=== PATIENT | female | born 1940 | race Caucasian/White ===

== ENCOUNTER 2018-06-09 06:45 | Inpatient (IN) | payer MEDICARE ==
[2018-06-07 10:20] LABS: BASOPHILS # (AUTO) 0.03 x10^3/uL (0-0.1); BASOPHILS % (AUTO) 1 % (0-1); EOSINOPHILS # (AUTO) 0.12 x10^3/uL (0-0.4); EOSINOPHILS % (AUTO) 2 % (1-7); LYMPHOCYTES # (AUTO) 1.15 x10^3/uL (1-3.4); LYMPHOCYTES % (AUTO) 16 % (22-44); MD NO; MEAN CORPUSCULAR HEMOGLOBIN 30.6 pg (27.0-34.8); MEAN PLATELET VOLUME 8.4 fL (7.4-10.4); MONOCYTES # (AUTO) 0.56 x10^3/uL (0.2-0.8); MONOCYTES % (AUTO) 8 % (2-9); NEUTROPHILS # (AUTO) 5.54 x10^3/uL (1.8-6.8); NEUTROPHILS % (AUTO) 75 % (42-75); PLATELET COUNT 262 x10^3/uL (130-400); RED BLOOD COUNT 4.76 x10^6/uL (3.82-5.3); RED CELL DISTRIBUTION WIDTH 15.2 % (9.6-15.2)
[2018-06-07 10:28] LABS: ALBUMIN 3.4 g/dL (3.4-5.0); ANION GAP 6 mmol/L (5-15); CALCIUM 8.7 mg/dL (8.5-10.1); CHLORIDE 107 mmol/L (98-107)
[2018-06-07 10:32] LABS: ALANINE AMINOTRANSFERASE 29 U/L (12-78); ALKALINE PHOSPHATASE 53 U/L (45-117); BILIRUBIN,TOTAL 0.3 mg/dL (0.2-1.0); CREATININE 0.94 mg/dL (0.55-1.02); TOTAL PROTEIN 7.4 g/dL (6.4-8.2)
[~2018-06-09] VITALS: Ht 170.2 cm; Wt 85.7 kg
[~2018-06-09 06:45] MED LIST: ASPI-621 PO; CRAN1TAB6 PO; EQUATE NAS; ZOLP10TA5 PO
[2018-06-09] MEDS ORDERED: BUPIVACAINE/PF-EPI 0.5% 1:200K ONE ×2 (06:51→10:54)
[2018-06-09] MEDS ORDERED: LACTATED RINGERS 1,000 ML IV SCH ×2 (07:51→16:00)
[2018-06-09] MEDS ORDERED: GABAPENTIN 300 MG CAPSULE PO ONE (08:00)
[2018-06-09] MEDS ORDERED: ACETAMINOPHEN 500 MG TABLET PO ONE (08:00)
[2018-06-09 08:03] VITALS: BP 109/69
[2018-06-09] MEDS ORDERED: INDOCYANINE GREEN 25 MG VIAL ONE (08:34)
[2018-06-09] MEDS ORDERED: FLUORESCEIN SODIUM 500 MG/5 ML ONE (08:35)
[2018-06-09] MEDS ORDERED: PROPOFOL 10 MG/ML, 20ML ONE (08:51)
[2018-06-09] MEDS ORDERED: ROCURONIUM 10MG/ML,5ML ONE (08:52)
[2018-06-09] MEDS ORDERED: NEOSTIGMINE 1 MG/ML, 10ML ONE (08:52)
[2018-06-09] MEDS ORDERED: GLYCOPYRROLATE 0.4 MG/2 ML, 2ML ONE (08:53)
[2018-06-09] MEDS ORDERED: DEXAMETHASONE 4 MG/ML, 1ML ONE ×2 (08:53)
[2018-06-09] MEDS ORDERED: CEFOTETAN PMX 2GM/50ML 50 ML ONE (08:54)
[2018-06-09] MEDS ORDERED: FENTANYL PF 250 MCG/5ML ONE (08:57)
[2018-06-09] MEDS ORDERED: PROMETHAZINE 25 MG SUPP PR PRN (10:00)
[2018-06-09] MEDS ORDERED: PROMETHAZINE 25 MG/ML, 1ML IV PRN (10:00)
[2018-06-09] MEDS ORDERED: ONDANSETRON ODT 8 MG PO PRN (10:00)
[2018-06-09] MEDS ORDERED: hydrALAzine 20 MG/ML, 1ML IV PRN (10:00)
[2018-06-09] MEDS ORDERED: ONDANSETRON 2MG/ML, 2ML IV PRN ×2 (10:00→16:00)
[2018-06-09] MEDS ORDERED: OXYcodone 5 MG/5 ML ORAL.SOL UDC PO PRN (10:00)
[2018-06-09] MEDS ORDERED: FENTANYL PF 100 MCG/2ML IV PRN (10:00)
[2018-06-09] MEDS ORDERED: MEPERIDINE/PF 25MG/0.5ML IVPush PRN (10:00)
[2018-06-09] MEDS ORDERED: LABETALOL 5MG/ML, 20ML IV PRN (10:00)
[2018-06-09] MEDS ORDERED: MORPHINE SULFATE 4 MG/ML, 1ML IVPush PRN ×2 (10:00→16:00)
[2018-06-09] MEDS ORDERED: HYDROmorphone 1 MG/ML, 1ML IV PRN (10:00)
[2018-06-09] MEDS ORDERED: PROMETHAZINE 12.5 MG SUPP PR PRN (10:00)
[2018-06-09] MEDS ORDERED: ONDANSETRON 2MG/ML, 2ML ONE (10:24)
[2018-06-09] MEDS ORDERED: THROMBIN 5,000 UNIT VIAL TP ONE (12:10)
[2018-06-09] MEDS ORDERED: KETOROLAC 30 MG/1 ML ONE (12:58)
[2018-06-09] MEDS ORDERED: OXYcodone 5 MG/5 ML ORAL.SOL UDC ONE (12:58)
[2018-06-09] MEDS ORDERED: KETOROLAC 30 MG/1 ML IVPush ONE (13:30)
[2018-06-09] MEDS ORDERED: ZOLPIDEM 10MG TABLET PO PRN (15:30)
[2018-06-09] MEDS ORDERED: DIPHENHYDRAMINE 25 MG CAPSULE PO PRN (15:30)
[2018-06-09] MEDS ORDERED: CALCIUM CARBONATE 500 MG TAB.CHEW PO PRN (16:00)
[2018-06-09] MEDS ORDERED: HALOPERIDOL 5 MG/ML IVPush PRN (16:00)
[2018-06-09] MEDS ORDERED: DEXAMETHASONE 4 MG/ML, 1ML IVPush PRN (16:00)
[2018-06-09] MEDS ORDERED: SCOPOLAMINE PATCH, 1.5MG PATCH.TD72 TD PRN (16:00)
[2018-06-09] MEDS ORDERED: DIPHENHYDRAMINE 50 MG/ML, 1ML IVPush PRN (16:00)
[2018-06-09] MEDS: ACETAMINOPHEN 500 MG TABLET PO SCH ×2 (16:24→21:58)
[2018-06-09] MEDS: KETOROLAC 30 MG/1 ML IVPush SCH ×2 (16:24→21:58)
[2018-06-09] MEDS: ENOXAPARIN 40 MG/0.4 ML SQ SCH (16:24)
[2018-06-09 19:45] VITALS: BP 110/70
[2018-06-09] MEDS: OXYMETAZOLINE NASAL SPRAY 0.05%, 15ML NAS SCH (21:00)
[2018-06-10 00:02] VITALS: BP 103/54
[2018-06-10] MEDS: OXYcodone IR 5MG TABLET PO PRN ×3 (02:47→13:52)
[2018-06-10 04:05] VITALS: BP 117/54
[2018-06-10] MEDS: KETOROLAC 30 MG/1 ML IVPush SCH ×4 (04:09→21:38)
[2018-06-10] MEDS: ACETAMINOPHEN 500 MG TABLET PO SCH ×4 (04:10→21:38)
[2018-06-10 05:45] LABS: ANION GAP 7 mmol/L (5-15); CALCIUM 8.8 mg/dL (8.5-10.1); CHLORIDE 107 mmol/L (98-107); CREATININE 0.86 mg/dL (0.55-1.02)
[2018-06-10 05:56] LABS: BASOPHILS % (AUTO) 0 % (0-1); EOSINOPHILS % (AUTO) 0 % (1-7); LYMPHOCYTES # (AUTO) 0.78 x10^3/uL (1-3.4); LYMPHOCYTES % (AUTO) 6 % (22-44); MD NO; MEAN CORPUSCULAR HEMOGLOBIN 30.6 pg (27.0-34.8); MEAN CORPUSCULAR HGB CONC 33.7 g/dL (32.4-35.8); MEAN PLATELET VOLUME 8.7 fL (7.4-10.4); MONOCYTES # (AUTO) 0.82 x10^3/uL (0.2-0.8); MONOCYTES % (AUTO) 7 % (2-9); NEUTROPHILS # (AUTO) 10.96 x10^3/uL (1.8-6.8); NEUTROPHILS % (AUTO) 87 % (42-75); PLATELET COUNT 232 x10^3/uL (130-400); RED BLOOD COUNT 4.49 x10^6/uL (3.82-5.3); RED CELL DISTRIBUTION WIDTH 14.9 % (9.6-15.2)
[2018-06-10] MEDS: ASPIRIN 81 MG TABLET EC PO SCH (06:36)
[2018-06-10 07:23] VITALS: BP 109/39
[2018-06-10] MEDS: OXYMETAZOLINE NASAL SPRAY 0.05%, 15ML NAS SCH ×2 (08:44→21:00)
[2018-06-10 12:45] VITALS: BP 114/66
[2018-06-10] MEDS: ENOXAPARIN 40 MG/0.4 ML SQ SCH (16:10)
[2018-06-10 20:08] VITALS: BP 108/68
[2018-06-11] MEDS: ACETAMINOPHEN 500 MG TABLET PO SCH ×2 (03:59→10:16)
[2018-06-11] MEDS: KETOROLAC 30 MG/1 ML IVPush SCH ×2 (03:59→10:16)
[2018-06-11 04:13] VITALS: BP 111/71
[2018-06-11 05:56] LABS: CHLORIDE 105 mmol/L (98-107)
[2018-06-11] MEDS: ASPIRIN 81 MG TABLET EC PO SCH (06:01)
[2018-06-11 06:04] LABS: ANION GAP 9 mmol/L (5-15); CALCIUM 8.2 mg/dL (8.5-10.1); CREATININE 0.83 mg/dL (0.55-1.02)
[2018-06-11 06:07] LABS: BASOPHILS # (AUTO) 0.04 x10^3/uL (0-0.1); BASOPHILS % (AUTO) 0 % (0-1); EOSINOPHILS # (AUTO) 0.19 x10^3/uL (0-0.4); EOSINOPHILS % (AUTO) 2 % (1-7); LYMPHOCYTES # (AUTO) 1.17 x10^3/uL (1-3.4); LYMPHOCYTES % (AUTO) 13 % (22-44); MD NO; MEAN CORPUSCULAR HEMOGLOBIN 31.2 pg (27.0-34.8); MEAN CORPUSCULAR HGB CONC 33.8 g/dL (32.4-35.8); MEAN CORPUSCULAR VOLUME 92.1 fL (80-100); MEAN PLATELET VOLUME 8.8 fL (7.4-10.4); MONOCYTES # (AUTO) 0.53 x10^3/uL (0.2-0.8); MONOCYTES % (AUTO) 6 % (2-9); NEUTROPHILS # (AUTO) 6.96 x10^3/uL (1.8-6.8); NEUTROPHILS % (AUTO) 78 % (42-75); PLATELET COUNT 205 x10^3/uL (130-400); RED BLOOD COUNT 4.19 x10^6/uL (3.82-5.3); RED CELL DISTRIBUTION WIDTH 15.2 % (9.6-15.2)
[2018-06-11 07:04] VITALS: BP 101/64
[2018-06-11] MEDS: OXYMETAZOLINE NASAL SPRAY 0.05%, 15ML NAS SCH (09:00)
[2018-06-11] MEDS ORDERED: OXYC-302 PO (11:53)
[2018-06-11] MEDS ORDERED: IBUP-1222 PO (11:55)
[2018-06-11] MEDS: OXYcodone IR 5MG TABLET PO PRN (12:27)
== END 2018-06-11 12:55 | disposition home or self-care (01) | DRG 330 ==
LOC: ORIP 06:45 → 4NOR 14:01
PROVIDERS: ADMIT Colon & Rectal Surgery; ATTEND Colon & Rectal Surgery
PROC: 8E0W4CZ Robotic Assisted Procedure of Trunk Region, Percutaneous Endoscopic Approach (ICD-10-PCS; 2018-06-09)
PROC: 0DBP4ZZ Excision of Rectum, Percutaneous Endoscopic Approach (ICD-10-PCS; 2018-06-09)
PROC: 0DTN4ZZ Resection of Sigmoid Colon, Percutaneous Endoscopic Approach (ICD-10-PCS; principal; 2018-06-09 09:30)
DX: K57.32 Diverticulitis of large intestine without perforation or abscess without bleeding (principal); E87.1 Hypo-osmolality and hyponatremia; E44.1 Mild protein-calorie malnutrition; Z85.3 Personal history of malignant neoplasm of breast; Z88.8 Allergy status to other drugs, medicaments and biological substances; Z86.718 Personal history of other venous thrombosis and embolism; Z90.49 Acquired absence of other specified parts of digestive tract; Z90.710 Acquired absence of both cervix and uterus; Z82.3 Family history of stroke
CPT/HCPCS: 36415; 80048; 80053; 83735; 85025; 86850; 86900; 88307; 93005; C1729; G0378; J1100; J1650; J1885; J2405; J2704; J2710; J3010; J7120; S0074